=== PATIENT | male | born 1980 | race Caucasian/White ===

== ENCOUNTER 2020-01-21 06:36 | Outpatient (CLI) | payer MEDICARE, MEDICAID, SELFPAY ==
--- NOTE | ~2020-01-21 | CT_ITS ---
EXAMINATION: CT brain wo con DATE: 01/21/2020 08:21 INDICATION: Seizure. TECHNIQUE: Computed tomography (CT) of the head was performed without intravenous contrast. The mA wa s adjusted according to patient size. Iterative reconstruction technique was employed. The dose-lengt h product was 529.67 mGy-cm. COMPARISON: None FINDINGS: There are multiple areas of chronic encephalomalacia involving the frontal and temporal lob es and left parietal lobe, most associated with arachnoid cysts. There are calcifications at the epen dyma of the lateral ventricles. There is no intracranial hemorrhage, acute infarction, or abnormal in tracranial mass lesion. The ventricles are normal in size. There is mucosal thickening in the paranas al sinuses. There is a trace left mastoid effusion. The orbits are normal. IMPRESSION: 1. Multiple areas of chronic encephalomalacia involving the frontal and temporal lobes and left parie maria de jesus lobe, most associated with arachnoid cysts. Reviewed, dictated and finalized at location A. IMPRESSION: 1. Multiple areas of chronic encephalomalacia involving the frontal and tempora l lobes and left parietal lobe, most associated with arachnoid cysts.
--- NOTE | 2020-01-24 09:52 | WPDNEUROLOGY ---
Neurology EEG Report General Information Date of Study: 01/21/20 TEST EEG DIAGNOSIS seizures CONDITION OF RECORDING awake drowsy and sleep EEG NUMBER [id number] CLINICAL HISTORY patient is mentally challenged and unable to tell the technologist , why he is having the test EEG DESCRIPTION basic resting occipital frequency consists of poorly organized low voltage 8 to 10 hertz per second alpha admixed with low-voltage 15 to 18 hertz per second beta. During drowsiness low-voltage beta activity seen diffusely. Bilateral symmetrical sleep activity seen during sleep. hyperventilation not done. photic stimulation produced poor response. Non paroxysmal. Nonfocal. Nonlateralizing. IMPRESSION No significant abnormalities noted
== END 2020-01-21 06:37 | disposition home or self-care (01) ==
PROVIDERS: PCP Nurse Practitioner Family; Visit Provider Psychiatry & Neurology Neurology
DX: R56.9 Unspecified convulsions (principal)
CPT/HCPCS: 70450; 95816

== ENCOUNTER 2020-05-17 08:23 | Outpatient (CLI) | payer MEDICARE, SELFPAY ==
[2020-05-17 08:34] LABS: Basophils Absolute Auto 0.02 K/mm3 (0.00-0.10); Basophils Percent Auto 0.3 % (0.0-1.0); Eosinophils Percent Auto 1.5 % (1.0-6.0); Hematocrit 42.8 % (40.0-54.0); Hemoglobin 14.5 g/dL (14.0-18.0); Immature Granulocyte Absolute 0.01 K/mm3 (0.00-0.00); Immature Granulocyte Percent A 0.2 % (0.0-0.0); Lymphocytes Absolute Auto 3.16 K/mm3 (1.10-4.50); Mean Corpuscular HGB Conc 33.9 g/dL (32.0-36.0); Mean Corpuscular Hemoglobin 31.5 pg (27.0-31.0); Mean Platelet Volume 9.3 fl (8.7-11.0); Monocytes Percent Auto 7.6 % (2.0-11.0); Neutrophils Absolute Auto 2.8 K/mm3 (1.7-7.2); Neutrophils Percent Auto 42.4 % (50.0-70.0); Platelet Count Result 214 K/mm3 (150-420); Red Cell Distribution Width 12.8 % (11.6-14.4); White Blood Count 6.6 K/mm3 (4.8-10.8)
[2020-05-17 10:07] LABS: Alanine Aminotransferase 30 U/L (16-63); Albumin Level 4.5 g/dL (3.4-5.0); Alkaline Phosphatase 122 U/L (46-116); Anion Gap 9 mmol/L (8-16); Aspartate Amino Transferase 13 U/L (15-37); Bilirubin,Total 0.3 mg/dL (0.00-1.00); Blood Urea Nitrogen 17 mg/dL (7-18); Calcium 9.4 mg/dL (8.5-10.1); Carbon Dioxide 30 mmol/L (21-32); Chloride 105 mmol/L (98-108); Estimated Glomerular Filt Rate > 60; Folic Acid 5.4 ng/mL (8.6->20); Glucose 100 mg/dL (70-99); Osmolality Calculated 299 mOsm/kg (285-295); Phenytoin Dilantin 5 ug/mL (10-20); Potassium 4.7 mmol/L (3.5-5.1); Sodium 144 mmol/L (136-145); Total Protein 7.7 g/dL (6.4-8.2); Vitamin B12 227 pg/mL (193-986)
[2020-05-20 16:18] LABS: Vitamin D 1,25 (OH)2 Total 74 pg/mL (18-72); Vitamin D2 1,25 (OH)2 <8 pg/mL; Vitamin D3 1,25 (OH)2 74 pg/mL
[2020-05-22 02:44] LABS: Vitamin D 25 Hydroxy 15 ng/mL (30-100)
== END 2020-05-17 08:24 | disposition home or self-care (01) ==
LOC: CHSLAB 08:25
PROVIDERS: PCP Nurse Practitioner Family; Visit Provider Psychiatry & Neurology Neurology
DX: R56.9 Unspecified convulsions (principal); E55.9 Vitamin D deficiency, unspecified
CPT/HCPCS: 36415; 80053; 80185; 82306; 82607; 82652; 82746; 85025

== ENCOUNTER 2021-09-22 10:40 | Outpatient (CLI) | payer MEDICARE, MEDICAID, SELFPAY ==
--- NOTE | ~2021-09-22 | XR_ITS ---
EXAMINATION: XR chest 2V Exam Date/Time: 09/22/2021 10:48 CDT HISTORY: R06.2 - Wheezing Comparison: None available. RESULT: Lines, tubes, and devices: None. Lungs and pleura: Ill-defined airspace opacity in the left lower lung, likely anteromedial segments of the lingula. Cardiomediastinal silhouette: Stable cardiomediastinal silhouette. Other: No acute osseous or upper abdominal finding. IMPRESSION: Left basilar opacities may reflect pneumonia in the appropriate clinical context. Reviewed, dictated and finalized at location K. IMPRESSION: Left basilar opacities may reflect pneumonia in the appropriate clinical contex tc
[2021-09-22 10:55] LABS: Basophils Absolute Auto 0.04 K/mm3 (0.00-0.10); Basophils Percent Auto 0.5 % (0.0-1.0); Eosinophils Absolute Auto 0.07 K/mm3 (0.02-0.50); Eosinophils Percent Auto 0.9 % (1.0-6.0); Hematocrit 42.7 % (40.0-54.0); Hemoglobin 14.2 g/dL (14.0-18.0); Immature Granulocyte Absolute 0.01 K/mm3 (0.00-0.00); Immature Granulocyte Percent A 0.1 % (0.0-0.0); Lymphocytes Absolute Auto 3.08 K/mm3 (1.10-4.50); Lymphocytes Percent Auto 40.1 % (18.0-42.0); Mean Corpuscular HGB Conc 33.3 g/dL (32.0-36.0); Mean Corpuscular Hemoglobin 31.1 pg (27.0-31.0); Mean Corpuscular Volume 93.6 fL (78.0-102.0); Mean Platelet Volume 9.9 fl (8.7-11.0); Monocytes Percent Auto 7.8 % (2.0-11.0); Neutrophils Absolute Auto 3.9 K/mm3 (1.7-7.2); Neutrophils Percent Auto 50.6 % (50.0-70.0); Platelet Count Result 224 K/mm3 (150-420); Red Blood Count 4.56 M/mm3 (4.70-6.10); Red Cell Distribution Width 12.7 % (11.6-14.4); White Blood Count 7.7 K/mm3 (4.8-10.8)
[2021-09-22 11:36] LABS: Alanine Aminotransferase 84 U/L (16-63); Albumin Level 4.6 g/dL (3.4-5.0); Alkaline Phosphatase 101 U/L (46-116); Anion Gap 7 mmol/L (8-16); Aspartate Amino Transferase 25 U/L (15-37); Bilirubin,Total 0.4 mg/dL (0.00-1.00); Blood Urea Nitrogen 14 mg/dL (7-18); Calcium 9.4 mg/dL (8.5-10.1); Carbon Dioxide 30 mmol/L (21-32); Chloride 102 mmol/L (98-108); Cholesterol 171 mg/dL (0-200); Estimated Glomerular Filt Rate > 60; Glucose 86 mg/dL (70-99); HDL Direct 40 mg/dL (40-60); LDL Cholesterol Calculated 102 mg/dL (<130); Osmolality Calculated 287 mOsm/kg (285-295); Potassium 4.5 mmol/L (3.5-5.1); Sodium 139 mmol/L (136-145); Total Protein 7.6 g/dL (6.4-8.2); Triglycerides 145 mg/dL (0-150)
[2021-09-28 07:30] LABS: Vitamin D 25 Hydroxy 23 ng/mL (30-100)
== END 2021-09-22 10:41 | disposition home or self-care (01) ==
LOC: CHSIMG 10:42
PROVIDERS: PCP Nurse Practitioner Family; Visit Provider Nurse Practitioner Family
DX: R06.2 Wheezing (principal); I10 Essential (primary) hypertension; Z00.00 Encounter for general adult medical examination without abnormal findings; E55.9 Vitamin D deficiency, unspecified
CPT/HCPCS: 36415; 71046; 80053; 80061; 82306; 85025

== ENCOUNTER 2021-09-27 12:04 | Outpatient (CLI) | payer MEDICARE, MEDICAID, SELFPAY ==
--- NOTE | ~2021-09-27 | CT_ITS ---
EXAMINATION: CT chest high resolution wo ne DATE: 09/27/2021 12:19 INDICATION: Wheezing and tobacco use, left lung opacities on chest radiograph TECHNIQUE: Computed tomography (CT) of the chest was performed without intravenous contrast. The dose -length product (DLP) was 257.75 mGy-cm. Automated exposure control and iterative reconstruction tech [employer] were employed. COMPARISON: 09/22/2021 FINDINGS: Respiratory motion artifact somewhat limits the examination. No focal airspace opacities ar e identified. No pleural effusion or pneumothorax. The heart size is normal. There is a 1.6 x 1.1 cm soft tissue density of the anterior mediastinum. There is a small sliding hiatal hernia. The visualiz ed osseous structures are unremarkable. IMPRESSION: 1. No CT correlate for the patient's symptoms. 2. 1.6 x 1.1 cm soft tissue density of the anterior mediastinum which may be benign or malignant. Rec ommend comparison with any available prior imaging and if not available, PET/CT is recommended. Reviewed, dictated and finalized at location F. IMPRESSION: 1. No CT correlate for the patient's symptoms. 2. 1.6 x 1.1 cm soft tissue density of the anterior mediastinum which may be be nign or malignant. Recommend comparison with any available prior imaging and if not available, PET/CT is recommended.
== END 2021-09-27 12:05 | disposition home or self-care (01) ==
LOC: CHSIMG 12:06
PROVIDERS: PCP Nurse Practitioner Family; Visit Provider Nurse Practitioner Family
DX: R93.89 Abnormal findings on diagnostic imaging of other specified body structures (principal)
CPT/HCPCS: 71250

== ENCOUNTER 2021-10-09 07:24 | Outpatient (CLI) | payer MEDICARE, MEDICAID, SELFPAY ==
--- NOTE | ~2021-10-09 | PE_ITS ---
EXAMINATION: PET skull to mid thigh DATE: 10/09/2021 09:09 INDICATION: Solitary pulmonary nodule TECHNIQUE: Blood glucose level was 100 mg/dL. 9.442 mCi of 18-fluorodeoxyglucose (18-FDG) was adminis tered i.v. Low dose computed tomography (CT) images were acquired from the base of the brain to the p roximal thighs for attenuation correction and anatomic localization. Positron emission tomography (PE T) images were acquired in the same distribution beginning 55 minutes after injection. Images includi ng fused PET/CT images were reconstructed in axial, coronal, and sagittal planes. Automated exposure control technique was employed. The dose-length product was 766.25mGy-cm. COMPARISON: Chest CT dated 09/27/2021 FINDINGS: Head/neck: There is symmetric increased activity in the oral cavity, nares, parotid glands, laryngeal muscles an d ocular muscles without CT correlate, likely physiologic. No pathologically enlarged cervical lympha denopathy or suspicious foci of increased FDG uptake in the visualized head or neck. Moderate mucosal thickening in the paranasal sinuses. Chest: Lungs are clear with no suspicious pulmonary nodules, pneumonia, pulmonary edema or pleural effusion. Heart size is normal. No pericardial effusion. Thoracic aorta is normal in caliber. No abnormal incr eased FDG uptake associated with a 16 x 11 mm nodules in the anterior mediastinum most likely represe nting a reactive lymph node. No hilar pathologically enlarged or FDG avid thoracic lymphadenopathy. Abdomen/pelvis/proximal thighs: Physiologic renal accumulation and excretion of FDG activity in the kidneys, bladder and along portio ns of ureters. Normal degree and heterogenous pattern of increased uptake throughout the liver withou t radiologic correlate or dominant FDG avid lesion. The gallbladder, pancreas, spleen and bilateral a drenal glands are normal. Mild to moderate uptake scattered throughout the bowels without radiologic correlate, also likely physiologic. Normal appendix. No other abnormal foci of increased FDG uptake o r pathologically enlarged lymphadenopathy in the abdomen, pelvis or proximal thighs. No free intraper itoneal gas or fluid. Musculoskeletal: Small sclerotic bone island at the left posterior iliac spine. Mild scattered degenerative skeletal c hanges. No suspicious lytic, blastic or blastic bone lesions. IMPRESSION: 1. No abnormal FDG activity associated with a 16 x 11 mm anterior mediastinal nodule most likely repr esenting a reactive lymph node. No other lesions suspicious for primary or metastatic disease in the neck, chest, abdomen or pelvis. Reviewed, dictated and finalized at location B. IMPRESSION: 1. No abnormal FDG activity associated with a 16 x 11 mm anterior mediastinal n odule most likely representing a reactive lymph node. No other lesions suspicio us for primary or metastatic disease in the neck, chest, abdomen or pelvis.
[2021-10-09 07:46] LABS: Glucose Point of Care 100 mg/dl (65-105)
== END 2021-10-09 07:25 | disposition home or self-care (01) ==
PROVIDERS: PCP Nurse Practitioner Family; Visit Provider Nurse Practitioner Family
DX: R91.1 Solitary pulmonary nodule (principal)
CPT/HCPCS: 78815; A9552

== ENCOUNTER 2022-07-26 10:12 | Outpatient (CLI) | payer MEDICARE, MEDICAID, SELFPAY ==
--- NOTE | ~2022-07-26 | CT_ITS ---
CT Scan of the Chest without Contrast: Clinical Indication: Lung nodule Technique: Contiguous sections were acquired throughout the chest without intravenous contrast. Dose reduction technique was used on this scan by utilizing automated exposure control and iterative recon struction technique. The dose-length product (DLP) was 102.21 mGy-cm. COMPARISON: 09/27/2021 Findings: Small anterior mediastinal soft tissue density is probably decrease in size from prior exam. The medi astinal soft tissues otherwise appear normal. There is no evidence of pleural or pericardial effusion. There is a 1.7 cm irregular left lower lobe pulmonary nodule. Right lung clear. Images through the upper abdomen reveal no abnormalities. Impression: 1.7 cm irregular left lower lobe pulmonary nodule. Malignancy is a consideration. Tissue sampling sallie uld be considered to establish a histologic diagnosis. Alternatively, short-term follow-up CT after a ny appropriate interval therapy could be considered, in 1-3 months. Reviewed, dictated and finalized at [facility]. Impression: 1.7 cm irregular left lower lobe pulmonary nodule. Malignancy is a consideratio n. Tissue sampling should be considered to establish a histologic diagnosis. Al ternatively, short-term follow-up CT after any appropriate interval therapy cou ld be considered, in 1-3 months.
== END 2022-07-26 10:13 | disposition home or self-care (01) ==
LOC: CHSIMG 10:14
PROVIDERS: PCP Nurse Practitioner Family; Visit Provider Nurse Practitioner Family
DX: R91.1 Solitary pulmonary nodule (principal)
CPT/HCPCS: 71250

== ENCOUNTER 2022-08-05 00:02 | Outpatient (CLI) | payer MEDICARE, MEDICAID, SELFPAY ==
--- NOTE | 2022-07-29 15:59 | PC.NURSE ---
Pre Radiology instructions Report to the outpatient [facility] on date 08/05/22 at time 0900 for procedure Time: 1100. YOU MAY BE MONITORED AT HOSPITAL FOR UP TO 4 HOURS AFTER YOUR PROCEDURE. A visitor will be allowed to accompany the patient into the hospital. You and your visitor will be asked to self-screen and do not enter if you have any COVID symptoms. A mask is OPTIONAL within the hospital. Patients are to have no food or drink 6 hours prior to procedure time Driving will be restricted after the procedure, you must have a person to drive you home. Labs will be drawn in preop area and once reviewed, you will be taken to radiology area for procedure. When the procedure is completed, you will be taken to outpatient where you will be monitored for several hours. You may have one visitor in this area. Other than holding anti-coagulants, patient may take other medication(s) as scheduled. Prior to your appointment date patients are instructed to hold anti-coagulants after discussing with ordering provider to stop. If unable to discontinue anti-coagulants please notify radiologist. ? No aspirin or warfarin (Coumadin) for 7 days prior to the procedure. ? No clopidogrel (Plavix), ticagrelor (Brilinta), prasugrel (Effient) or dabigatran (Pradaxa) for 5 days prior to the procedure. ? No rivaroxaban (Xarelto), apixaban (Eliquis), dipyridamole (Aggrenox or Persantine) or cilostazol (Pletal) for 2 days prior to the procedure. Medications to discontinue per physician: N/A Date to take last dose: N/A Please leave all valuables, including medications, at home the day of procedure. The hospital will not accept responsibility for valuables. Wear comfortable, loose fitting clothing.? Follow any additional instructions given to you from ordering provider. Telephone instructions given to LOVE ZAVALA and asked if any additional questions and then verbalized understanding. Patient advised to call scheduling provider office or registration scheduling [phone] if any additional questions.
[2022-07-29 16:02] VITALS: BMI 28.8
--- NOTE | ~2022-08-05 | CT_ITS ---
EXAMINATION:CT diagnostic chest wo con DATE: 08/05/2022 10:45 INDICATION: Left lower lobe lung nodule. TECHNIQUE: Computed tomography (CT) of the chest was performed without intravenous contrast. Automate d exposure control and iterative reconstruction technique were employed. The dose-length product (DLP ) was 103.90 mGy-cm. COMPARISON: Chest CT 07/26/2022 FINDINGS: There is a 14 mm cavitary nodule in left lower lobe, decreased from 19 mm in 07/26/2022. The re are groundglass opacities around the nodule. No pleural effusion. The heart size is normal. No per icardial effusion. There is diffuse hepatic steatosis. There is mild thoracic spondylosis. IMPRESSION: 1. Cavitary nodule in left lung lower lobe with interval improvement, likely infection. I discussed t his result with the patient's family. The biopsy was canceled. Noncontrast low-dose chest CT is recom mended in 3 months. Reviewed, dictated and finalized at location A. IMPRESSION: 1. Cavitary nodule in left lung lower lobe with interval improvement, likely in fection. I discussed this result with the patient's family. The biopsy was canc eled. Noncontrast low-dose chest CT is recommended in 3 months.
[2022-08-05 08:49] VITALS: BP 142/93; PULSE 97; RESP 16; TEMP 36.5; O2SAT 97
[2022-08-05 09:13] LABS: Mean Platelet Volume 8.9 fl (7.4-10.4); Platelet Count Result 223 k/mm3 (150-375)
[2022-08-05 09:25] LABS: Prothrombin Time 13.2 Seconds (11.1-14.7)
--- NOTE | 2022-08-05 11:20 | SUR.PREOP ---
[address] for scan of lungs per dr burgos. 1030 dr burgos here and talked to pt and family ,ct scan results available,procedure cancelled due to results,no cancer at site,possible infection.
== END 2022-08-05 10:37 | disposition home or self-care (01) ==
PROVIDERS: PCP Nurse Practitioner Family; Visit Provider Radiology Diagnostic Radiology
PROC: BB24ZZZ Computerized Tomography (CT Scan) of Bilateral Lungs (ICD-10-PCS; CPT 32408; principal; 2022-08-05 11:00)
DX: Z01.818 Encounter for other preprocedural examination (principal); R91.1 Solitary pulmonary nodule
CPT/HCPCS: 36415; 71250; 85049; 85610

== ENCOUNTER 2023-03-10 12:31 | Outpatient (CLI) | payer MEDICARE, MEDICAID, SELFPAY ==
--- NOTE | ~2023-03-10 | CT_ITS ---
EXAMINATION: CT diagnostic chest wo con DATE: 03/10/2023 13:16 INDICATION: Lung nodule follow-up TECHNIQUE: Computed tomography (CT) of the chest was performed without intravenous contrast. The dose -length product (DLP) was 106.87 mGy-cm. Automated exposure control and iterative reconstruction tech [employer] were employed. COMPARISON: 08/05/2022 FINDINGS: There has been near-complete interval resolution of the previously described left lower lob e nodule, most consistent with infection/inflammation. No new pulmonary nodule is identified. The carolynn gs are free of acute airspace opacities. No pleural effusion or pneumothorax. No pathologically enlar ged thoracic lymph nodes are identified. The heart size is normal. There is mild thoracic spondylosis . The liver is diffusely low in attenuation when compared with the spleen, consistent with hepatic st eatosis. IMPRESSION: 1. Near-complete interval resolution of the previously described left lower lobe nodule, most consist ent with infection/inflammation. Reviewed, dictated and finalized at location B. ER LAMPARA NET IMPRESSION: 1. Near-complete interval resolution of the previously described left lower lob e nodule, most consistent with infection/inflammation.
== END 2023-03-10 12:32 | disposition home or self-care (01) ==
LOC: CHSIMG 12:33
PROVIDERS: PCP Nurse Practitioner Family; Visit Provider Nurse Practitioner Family
DX: R91.1 Solitary pulmonary nodule (principal); Z87.891 Personal history of nicotine dependence
CPT/HCPCS: 71250

== ENCOUNTER 2024-04-13 09:39 | Outpatient (CLI) | payer MEDICARE, MEDICAID, SELFPAY ==
--- NOTE | ~2024-04-13 | CT_ITS ---
EXAMINATION:CT chest high resolution wo co DATE: 04/13/2024 10:01 INDICATION: Solitary pulmonary nodule. TECHNIQUE: Computed tomography (CT) of the chest was performed without intravenous contrast. Automate d exposure control and iterative reconstruction technique were employed. The dose-length product (DLP ) was 217.66 mGy-cm. COMPARISON: Chest CT 03/10/2023, PET/CT 10/09/2021 FINDINGS: The lungs demonstrate mild atelectasis. There are 5 mm and 3 mm nodules in left lower lobe, stable from 03/10/23. No pleural effusion. The heart size is normal. No pericardial effusion. There is a chronic 9 mm subcutaneous mass in left upper chest that may be a sebaceous cyst. There is diffus e hepatic steatosis. There is an 11 mm mass in right adrenal gland measuring without change, likely a n adenoma. There is mild thoracic spondylosis. IMPRESSION: 1. Stable small pulmonary nodules, likely benign. Reviewed, dictated and finalized at location A. 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
== END 2024-04-13 09:40 | disposition home or self-care (01) ==
LOC: CHSIMG 09:40
PROVIDERS: PCP Nurse Practitioner Family; Visit Provider Nurse Practitioner Family
DX: R91.8 Other nonspecific abnormal finding of lung field (principal)
CPT/HCPCS: 71250